=== PATIENT | female | born 1965 | race Caucasian/White ===

== ENCOUNTER → 2021-05-05 | Day surgery (SDC) | payer OTHER ==
[~2021-05-05] VITALS: Ht 162.6 cm; Wt 108.9 kg
[~2021-05-05] MED LIST: ASPIRIN EC81 MG PO; COREG 3.125M3.125 MG PO; CVS CALCIUM 601 EAC3 PO; EVISTA60 MG PO; HYDROCHLOROTHIA50 MG PO; SYNTHROID125 MCG PO
== END | disposition home or self-care (01) ==
LOC: FAS 09:13
DX: K92.1 Melena (principal); D12.2 Benign neoplasm of ascending colon; D12.3 Benign neoplasm of transverse colon; K64.8 Other hemorrhoids; K64.4 Residual hemorrhoidal skin tags; I10 Essential (primary) hypertension; E03.9 Hypothyroidism, unspecified; Z79.82 Long term (current) use of aspirin; Z72.89 Other problems related to lifestyle
CPT/HCPCS: J2250; J2704; J7120